=== PATIENT | male | born 1940 | race Caucasian/White ===

== ENCOUNTER 2022-09-22 15:34 | Outpatient (RCR) | payer MEDICARE, OTHER | END 2022-10-15 | disposition home or self-care (01) | LOC: ONC 15:34 | PROVIDERS: ATTEND Radiology Radiation Oncology | DX: C61 Malignant neoplasm of prostate (principal); I11.9 Hypertensive heart disease without heart failure; E78.00 Pure hypercholesterolemia, unspecified | CPT/HCPCS: 99205 ==

== ENCOUNTER 2022-12-22 09:35 | Outpatient (RCR) | payer MEDICARE, OTHER | END 2023-01-15 | disposition home or self-care (01) | LOC: ONC 09:35 | PROVIDERS: ATTEND Radiology Radiation Oncology | DX: C61 Malignant neoplasm of prostate (principal); I11.9 Hypertensive heart disease without heart failure; E78.00 Pure hypercholesterolemia, unspecified | CPT/HCPCS: 99205; 99215 ==

== ENCOUNTER 2023-01-21 05:32 | Outpatient (CLI) | payer MEDICARE, OTHER ==
[~2023-01-21] VITALS: Ht 180.3 cm; Wt 88.6 kg
[2023-01-22] MEDS ORDERED: ASCO500T16 PO (10:29)
[2023-01-22] MEDS ORDERED: GARL10002 PO (10:29)
[2023-01-22] MEDS ORDERED: ASPI-999 PO (10:29)
[2023-01-22] MEDS ORDERED: MV-M1TAB38 PO (10:29)
[2023-01-22] MEDS ORDERED: LISI40TA9 PO (10:29)
[2023-01-22] MEDS ORDERED: PSYL0.4C2 PO (10:29)
[2023-01-22] MEDS ORDERED: DONE10TA41 PO (10:29)
[2023-01-22] MEDS ORDERED: SIMV20TA26 PO (10:29)
[2023-01-22] MEDS ORDERED: CIPR-226 PO (10:29)
[2023-01-22] MEDS ORDERED: FISH1CAP15 PO (10:29)
[2023-01-22] MEDS ORDERED: VITAMIN PO (10:29)
[2023-01-22] MEDS ORDERED: FLUT1DIS26 IH (10:29)
[2023-01-22] MEDS ORDERED: CALC-227 PO (10:29)
[2023-01-22] MEDS ORDERED: MULT-1136 PO (10:29)
[2023-01-22] MEDS ORDERED: HYDR12.56 PO (10:29)
[2023-01-22] MEDS ORDERED: ISOS30TA82 PO (10:29)
[2023-01-22] MEDS ORDERED: ATEN25TA PO (10:29)
== END 2023-01-22 10:57 | disposition home or self-care (01) ==
LOC: PREOP 05:32
PROVIDERS: ATTEND Specialist
DX: Z01.818 Encounter for other preprocedural examination (principal)

== ENCOUNTER → 2023-03-17 | Outpatient (CLI) | payer MEDICARE, OTHER ==
[~2023-03-17] MED LIST: ASCO500T16 PO; ASPI-999 PO; ATEN25TA PO; CALC-227 PO; CIPR-226 PO; DONE10TA41 PO; FISH1CAP15 PO; FLUT1DIS26 IH; GARL10002 PO; HYDR12.56 PO; ISOS30TA82 PO; LISI40TA9 PO; MULT-1136 PO; MV-M1TAB38 PO; PSYL0.4C2 PO; SIMV20TA26 PO; VITAMIN PO
== END | disposition home or self-care (01) ==
LOC: PREOP 10:50
PROVIDERS: ATTEND Specialist
DX: Z01.818 Encounter for other preprocedural examination (principal)

== ENCOUNTER 2023-03-25 09:15 | Day surgery (SDC) | payer MEDICARE, OTHER ==
[2023-03-25] VITALS (10 sets, daily range): BP systolic 115–148; BP diastolic 58–108
[~2023-03-25] VITALS: Ht 180 cm; Wt 88.6 kg
[2023-03-25] MEDS ORDERED: LACTATED RINGERS 1,000 ML 1,000 ML IV PRN (09:30)
--- NOTE | 2023-03-25 10:04 | Progress Note-Pre Operative ---
Pre-Operative Progress Note Date of Available H&P: Mar 18, 2023 Date H&P Reviewed: Mar 25, 2023 Time H&P Reviewed: 10:15 History & Physical: H&P Reviewed, No changes noted Pre-Operative Diagnosis: Prostate cancer Darryn BATES MD Mar 25, 2023 10:04
[2023-03-25] MEDS ORDERED: ONDANSETRON INJECTION 4 MG/2 ML (SDV) ONE (10:10)
[2023-03-25] MEDS ORDERED: proPOfol INJECTION 200 MG/20 ML VIAL IV ONE (10:10)
[2023-03-25] MEDS ORDERED: LIDOCAINE PF 2% 5 ML VIAL ONE (10:10)
[2023-03-25] MEDS ORDERED: fentaNYL INJECTION 100 MCG/2 ML VIAL ONE (10:11)
[2023-03-25] MEDS ORDERED: SEVOFLURANE (ULTANE) 15 ML INHAL SOLN ONE (10:42)
[2023-03-25] MEDS ORDERED: dexAMETHasone INJ 10 MG/ML 1 ML VIAL ONE (10:42)
--- NOTE | 2023-03-25 10:46 | Progress Note-Post Operative ---
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
--- NOTE | 2023-03-25 10:58 | Anesthesia-General Post-Op ---
General Patient Condition Mental Status/LOC: Same as Preop Cardiovascular: Satisfactory Nausea/Vomiting: Absent Respiratory: Satisfactory Pain: Controlled Complications: Absent Post Op Complications Complications None Follow Up Care/Instructions Patient Instructions None needed. Anesthesia/Patient Condition Patient Condition Patient is doing well, no complaints, stable vital signs, no apparent adverse anesthesia problems. No complications reported per nursing. TESSA JAY CRNA Mar 25, 2023 10:58
== END 2023-03-25 12:50 | disposition home or self-care (01) ==
LOC: SDC 09:15
PROVIDERS: ATTEND Specialist
DX: C61 Malignant neoplasm of prostate (principal)
CPT/HCPCS: 55874; 55876; 87081; A4648; C1889

== ENCOUNTER → 2023-04-16 | Outpatient (RCR) | payer MEDICARE, OTHER | END | disposition home or self-care (01) | LOC: ONC 04-07 12:31 | PROVIDERS: ATTEND Radiology Radiation Oncology | DX: Z51.0 Encounter for antineoplastic radiation therapy (principal); C61 Malignant neoplasm of prostate; I11.9 Hypertensive heart disease without heart failure; E78.00 Pure hypercholesterolemia, unspecified | CPT/HCPCS: 77300; 77301; 77334; 77338; 77385 ==